=== PATIENT | female | born 1980 ===

== ENCOUNTER → 2024-09-13 10:03 | Outpatient (REF) | payer BC, SELFPAY | LOC: RAD 10:03 | PROVIDERS: ATTENDING PHYSICIAN Family Medicine | DX: R19.00 Intra-abdominal and pelvic swelling, mass and lump, unspecified site (principal) | CPT/HCPCS: 76705 ==

== ENCOUNTER 2024-12-06 05:50 | Day surgery (SDC) | payer BC, SELFPAY ==
[2024-12-06 06:15] VITALS: BMI 34.4
[2024-12-06 06:16] VITALS: BMI 34.4
[2024-12-06 06:17] VITALS: BP 159/90
[2024-12-06] MEDS: TYLENOL 1000 MG PO (06:20)
[2024-12-06] MEDS: NORMOSOL-R/PLASMALYTE-A 1000 IV (06:27)
--- NOTE | 2024-12-06 07:00 | W.SUR.PREOP ---
Pre-Operative Surgical Note
-
I have examined this patient prior to the performance of the scheduled procedure.
The patient's condition is unchanged from the time of the current History and
Physical and the patient is able to undergo the scheduled procedure.
--- NOTE | 2024-12-06 07:00 | HP.FOC2 ---
Focused History & Physical
Chief Complaint
HPI:
Chief Complaint: Left upper quadrant abdominal wall lipoma
HPI / Indication for Planned Procedure: This is a 44-year-old female with a symptomatic 3 cm left upper quadrant abdominal wall lipoma confirmed on MRI imaging. Will plan for an open excision today.
Relevant Past Medical History: Negative
Relevant Social History: Negative
Relevant Family History: Negative
Relevant Past Surgical History: Negative
Review of Systems
Review of Pertinent Systems: All Systems Negative
Medication
See Medication form for detailed medications: Yes
Medication List (including Herbals & OTC):
amlodipine 5 mg tablet 5 mg PO DAILY 12/01/24
lisinopril 20 mg-hydrochlorothiazide 12.5 mg tablet 1 tab PO BID 12/01/24
metoprolol succinate 25 mg tablet,extended release 24 hr 12.5 mg PO DAILY 12/01/24
Medications Reviewed: Yes
Allergies and Reactions
Patient has Allergies: No
Noted Allergies and Reactions:
Allergy/AdvReac Type Severity Reaction Status Date / Time
No Known Allergies Allergy Verified 12/06/24 06:12
Pertinent Physical Exam
All Other Systems: Negative
Head/Neck: Normal
Diagnosis / Assessment
This is a 44-year-old female with a symptomatic 3 cm left upper quadrant abdominal wall lipoma confirmed on MRI imaging.
Plan / Procedure
Will plan for an open lipoma excision today.
Anesthesia/Sedation to be done by Anesthesia Provider: Yes
[2024-12-06 08:00] VITALS: BP 114/57
--- NOTE | 2024-12-06 08:03 | W.IMMPOSTOP ---
Surgical Immed Post Op Note
-
Primary Surgeon: Zbigniew Cutler MD
Assisting Surgeon: None
Pre-op Diagnosis: Left upper quadrant abdominal wall lipoma
Post-op Diagnosis: Same
Procedure Performed: Excision of an abdominal wall lipoma
Anesthesia Type: General
Specimen / Cultures: Left upper quadrant abdominal wall lipoma
Estimated Blood Loss: 1 cc
Complications: None
Operative Findings: 7 x 4 x 2 cm left upper quadrant abdominal wall unencapsulated lipoma. Some of the surrounding fatty subcutaneous tissue was removed as well. No residual lipoma left behind.
--- NOTE | 2024-12-06 08:05 | OR.RPT ---
Operative Report
Operative Report
Patient Name: Rosa Maria Ayala
: 1980
Date of Operation: 12/06/2024
Preoperative Diagnosis: Left upper quadrant abdominal wall lipoma
Postoperative Diagnosis: Same
Procedure(s):
Excision of lipoma of the abdominal wall
Surgeon(s):
Dr. Zbigniew Cutler
Loan Teller(s):
Dr. Nicole Marx (PGY 1)
Anesthesia: MAC
Estimated Blood Loss: 1 cc
Urine Output: None
Drains/Lines/Implants: None
Specimens:
1. Lipoma of the left upper quadrant abdominal wall
Indication for surgery:
This is a 44-year-old female with a symptomatic left upper quadrant abdominal wall subcutaneous mass. Imaging and exam in the office consistent with a lipoma. After discussion of risk benefits and alternatives they elected and were consented for
surgery.
Operative Findings: 7 x 4 x 2 cm left upper quadrant abdominal wall unencapsulated lipoma. Some of the surrounding fatty subcutaneous tissue was removed as well. No residual lipoma left behind.
Details of the operation:
The patient was brought to the operating room a placed in the supine position. After appropriate sedation by anesthesia, the area of the left upper quadrant was prepped and draped in the usual fashion. A linear incision over natural skin line was
made over the mass and carried down through the subcutaneous tissue. The Lipoma was identified and found to be unencapsulated. The lipoma was freed circumferentially taking care not to come across the many interdigitating extensions that it had.
The specimen which measured roughly 7 x 4 x 2 cm was passed off the field. Some additional fatty tissue was removed until we felt certain that no residual lipomatous tissue had been left behind. The cavity was irrigated and hemostasis was
achieved. The space was closed with interrupted 3-0 Vicryl sutures. The dermis was then approximated using interrupted 3-0 Vicryl sutures followed by a running 4-0 monocryl, followed by dermabond. All counts were correct at the end of procedure.
The patient was then transferred to the PACU for recovery.
I was the attending physician and performed the procedure with assistance from the resident above. I was present for all portions of the case
Zbigniew Cutler MD
[2024-12-06 08:15] VITALS: BP 119/62
[2024-12-06 08:30] VITALS: BP 111/59
== END 2024-12-06 08:45 | disposition home or self-care (01) ==
LOC: SDS 05:50
PROVIDERS: ATTENDING PHYSICIAN Surgery
DX: D17.1 Benign lipomatous neoplasm of skin and subcutaneous tissue of trunk (principal); I10 Essential (primary) hypertension; D68.51 Activated protein C resistance; Z86.718 Personal history of other venous thrombosis and embolism
CPT/HCPCS: 22903; 88304